=== PATIENT | female | born 1965 | race Caucasian/White ===

== ENCOUNTER 2023-06-29 10:04 | Emergency (ER) | payer BC ==
[~2023-06-29] VITALS: Ht 165.1 cm; Wt 118.8 kg
[2023-06-29] MEDS ORDERED: KETOROLAC 30 MG/ML 1ML VIAL IV ONE (12:00)
[2023-06-29] MEDS ORDERED: ONDANSETRON 4MG 2ML VIAL IV ONE (12:00)
[2023-06-29 12:57] LABS: BASO % 0.5 % (0.0-1.0); EOS # 0.1 10^3/uL (0.0-0.5); EOS % 1.4 % (0.0-3.0); HEMATOCRIT 44.8 % (36.0-47.0); HEMOGLOBIN 14.7 g/dl (12.0-15.5); LYMPH # 1.9 10^3/uL (1.5-5.0); LYMPH % 22.6 % (24.0-44.0); MEAN CORPUSCULAR HEMOGLOBIN 30.2 pg (27.0-33.0); MEAN CORPUSCULAR HGB CONC 32.8 g/dl (32.0-36.5); MONO # 0.6 10^3/uL (0.0-0.8); MONO % 7.4 % (2.0-8.0); NEUTROPHILS # 5.7 10^3/uL (1.5-8.5); NEUTROPHILS % 67.7 % (36.0-66.0); PLATELET COUNT, AUTOMATED 217 10^3/uL (150-450); RED BLOOD COUNT 4.87 10^6/uL (4.00-5.40); WHITE BLOOD COUNT 8.4 10^3/uL (4.0-10.0)
[2023-06-29 13:25] LABS: LIPASE 29 U/L (12-53)
[2023-06-29 13:28] LABS: ALKALINE PHOSPHATASE 94 U/L (46-116); ALT/SGPT 92 U/L (7.0-40); AST/SGOT 55 U/L (<34); BILIRUBIN,DIRECT 0.4 MG/DL (<0.4); BILIRUBIN,TOTAL 1.4 MG/DL (0.3-1.2); BLOOD UREA NITROGEN 11 MG/DL (9-23); CALCIUM LEVEL 9.4 MG/DL (8.5-10.1); CARBON DIOXIDE LEVEL 29 MMOL/L (20-31); CHLORIDE LEVEL 106 MMOL/L (98-107); CK-MB VALUE MASS < 1.0 NG/ML (<3.6); CPK CREATINE PHOSPHOKINASE 105 U/L (34-145); CREATININE FOR GFR 0.62 MG/DL (0.55-1.30); GLOMERULAR FILTRATION RATE > 60.0 (>51); GLUCOSE, FASTING 92 MG/DL (60-100); MB/CK RELATIVE INDEX 0.95 (< OR =4); POTASSIUM SERUM 4.1 MMOL/L (3.5-5.1); SODIUM LEVEL 140 MMOL/L (136-145); TOTAL PROTEIN 7.1 G/DL (5.7-8.2)
[2023-06-29] MEDS ORDERED: ISOVUE-370 76% 100ML VIAL As Ordered ONE (13:42)
[2023-06-29 13:46] VITALS: BP 158/89; TEMP 98.6; O2SAT 98
[2023-06-29 15:06] LABS: CK-MB VALUE MASS < 1.0 NG/ML (<3.6)
[2023-06-29 15:08] LABS: CPK CREATINE PHOSPHOKINASE 102 U/L (34-145); MB/CK RELATIVE INDEX 0.98 (< OR =4)
== END 2023-06-29 16:04 | disposition home or self-care (01) ==
LOC: M ED 10:04
DX: R10.9 Unspecified abdominal pain (principal); K65.4 Sclerosing mesenteritis; E11.9 Type 2 diabetes mellitus without complications; E78.5 Hyperlipidemia, unspecified; K76.0 Fatty (change of) liver, not elsewhere classified; K57.30 Diverticulosis of large intestine without perforation or abscess without bleeding; N83.209 Unspecified ovarian cyst, unspecified side
CPT/HCPCS: 74177; 76705; 80048; 80076; 81001; 82550; 82553; 83690; 84484; 85025; 93005; 96374; 96375; 99284; J1885; J2405; Q9967